=== PATIENT | female | born 2000 | race Caucasian/White ===

== ENCOUNTER 2020-08-07 10:32 | Outpatient (CLI) | payer OTHER ==
--- NOTE | 2020-08-07 11:24 | RAD ---
EXAM: 2 views abdomen PROVIDED CLINICAL HISTORY: Abdominal pain COMPARISON: None FINDINGS: Visualized lung bases appear clear. Bowel gas pattern is nonspecific. No radiographically apparent ur inary tract calculi. No evidence for pneumoperitoneum. Conspicuous colonic and rectal fecal retention. IMPRESSION: Nonspecific bowel gas pattern.
--- NOTE | 2020-08-07 11:27 | ULT ---
EXAM: Abdominal ultrasound PROVIDED CLINICAL HISTORY: Abdominal pain COMPARISON: None FINDINGS: Visualized portions of the pancreas, IVC and aorta appear normal. Liver demonstrates no mass or intrahepatic biliary ductal dilatation. Common duct is nondilated. Gallbladder demonstrates no stones, wall thickening or pericholecystic fluid. Kidneys demonstrate no hydronephrosis or solid mass. Spleen is not enlarged and demonstrates no focal abnormality. IMPRESSION: Unremarkable abdominal ultrasound.
== END 2020-08-07 10:33 | disposition home or self-care (01) ==
LOC: BICULT 10:32
PROVIDERS: ATTEND Internal Medicine Gastroenterology
DX: R10.30 Lower abdominal pain, unspecified (principal); K59.09 Other constipation; R12 Heartburn; R14.1 Gas pain; R30.0 Dysuria
CPT/HCPCS: 74019; 93975